=== PATIENT | female | born 1955 | race Caucasian/White ===

== ENCOUNTER → 2016-05-23 | Outpatient (CLI) | payer OTHER ==
[~2016-05-23] MED LIST: ACET-1138 PO; ALBUAER19 INH; ASPEC81 PO; CALC-51 PO; CHOL2000 PO; CLB200 PO; CLR10 PO; FLUT1INH INH; LISI-788 PO; MONT1TAB3 PO; OMEG10007 PO; ONDA8TAB6 PO; OXYSR10 PO; RXC5 PO; SNK PO; [UNRECOGNIZED DRUG - OTHER] PO
--- NOTE | 2016-05-23 17:00 | MAMMOGRAPHY REPORT ---
BILATERAL DIGITAL SCREENING MAMMOGRAM TOMOSYNTHESIS WITH CAD: 05/23/2016 TECHNIQUE: Breast tomosynthesis in addition to standard 2D mammography was performed. Current study was also evaluated with a Computer Aided Detection (CAD) system. COMPARISON: Prior outside mammograms dated 03/23/2015, 01/22/2014, 07/25/2012, 12/16/09 from [facility]. BREAST COMPOSITION: The tissue of both breasts is heterogeneously dense, which may obscure small ma sses. FINDINGS: No suspicious masses, calcifications, or areas of architectural distortion are noted in e ither breast. There has been no significant interval change compared to prior exams. Scattered bilat eral benign-appearing calcifications are not significantly changed. IMPRESSION: ACR BI-RADS CATEGORY 2: BENIGN There is no mammographic evidence of malignancy. A 1 year screening mammogram is recommended. The p atient will receive written notification of the results. Approximately 10% of breast cancers are not detected with mammography. A negative mammographic repor t should not delay biopsy if a clinically suggestive mass is present. Brynn Borges M.D. ah/:05/23/2016 15:55:35 Assembler Equipment: Jade PINEDA(Keely)(M), [facility] letter sent: Normal 1/2 BI-RADS Code: ACR BI-RADS Category 2: Benign
== END | disposition home or self-care (01) ==
LOC: C.MAMM 13:14
PROVIDERS: ATTEND Family Medicine
DX: Z12.31 Encounter for screening mammogram for malignant neoplasm of breast (principal)

== ENCOUNTER → 2017-02-18 | Outpatient (CLI) | payer OTHER ==
[~2017-02-18] MED LIST changes: -ONDA8TAB6 PO
--- NOTE | 2017-02-18 07:43 | DIAGNOSTIC IMAGING REPORT ---
ULTRASOUND RIGHT UPPER QUADRANT ABDOMEN CLINICAL HISTORY: Epigastric abdominal pain. COMPARISON STUDY: No priors. TECHNIQUE: Real-time, grayscale, and color flow sonography of the right upper quadrant of the abdomen was performed. Images are reviewed in the transverse and longitudinal planes. FINDINGS: Liver: The liver is enlarged, measuring over 20 cm in length. The liver demonstrates heterogeneously increased echotexture consistent with hepatic steatosis. Note that this degrades acoustic penetration of the liver. There is no intrahepatic biliary ductal dilatation. The main portal vein is patent. Gallbladder: The gallbladder is normal in appearance. No gallstones are identified. There is no gallbladder wall thickening or pericholecystic fluid. A sonographic Ritchie's sign is reportedly absent. The common bile duct measures up to 0.5 cm in diameter. Pancreas: Visualized portions of the pancreatic head and body are normal in appearance. Right kidney: Survey images of the right kidney demonstrate normal size and echotexture. There is no hydronephrosis. Ascites: None. IMPRESSION: 1. No acute sonographic abnormality is identified. No gallstones are seen. 2. Hepatomegaly and severe hepatic steatosis Electronically signed by: Scott Hamilton M.D. 02/18/2017 7:42 AM Dictated Date/Time: 02/18/2017 7:41 AM
[2017-02-18 10:12] LABS: ALT/SGPT 37 U/L (12-78); AST/SGOT 16 U/L (15-37); BLOOD UREA NITROGEN 18 mg/dl (7-18); BUN/CREATININE RATIO 23.3 (10-20); CALCIUM 9.6 mg/dl (8.5-10.1); CARBON DIOXIDE 27 mmol/L (21-32); CHLORIDE 102 mmol/L (98-107); CREATININE 0.77 mg/dl (0.60-1.20); GLUCOSE 151 mg/dl (70-99); POTASSIUM 4.2 mmol/L (3.5-5.1); SODIUM 138 mmol/L (136-145)
[2017-02-18 10:15] LABS: CHOLESTEROL 200 mg/dl (0-200); CHOLESTEROL/HDL RATIO 4.8; HDL CHOLESTEROL 42 mg/dl; LDL CHOLESTEROL CALCULATED 96 mg/dl; TRIGLYCERIDES 309 mg/dl (0-150); VERY LOW DENSITY LIPOPROT CALC 62 mg/dl
== END | disposition home or self-care (01) ==
LOC: C.ULTR 06:58
PROVIDERS: ATTEND Physician Assistant
DX: R10.11 Right upper quadrant pain (principal); R10.13 Epigastric pain; K76.0 Fatty (change of) liver, not elsewhere classified; I10 Essential (primary) hypertension; E78.5 Hyperlipidemia, unspecified

== ENCOUNTER → 2017-03-06 | Outpatient (CLI) | payer OTHER | END | disposition home or self-care (01) | LOC: C.LABMFLN 07:35 | PROVIDERS: ATTEND Family Medicine | DX: R73.09 Other abnormal glucose (principal) ==

== ENCOUNTER → 2017-03-25 | Outpatient (CLI) | payer OTHER ==
[~2017-03-25] MED LIST changes: +ACET325T96 PO; -ALBUAER19 INH; -ASPEC81 PO; -CALC-51 PO; +CALC500T64 PO; -CHOL2000 PO; +CHOLTAB11 PO; -CLB200 PO; +CYCL0.052 OP; +DICL-201 PO; +HYDR-5688 PO; +IRONCAP18 PO; +LISI-787 PO; -LISI-788 PO; -OXYSR10 PO; +PRLSR20 PO; -RXC5 PO; -SNK PO; +VNTHFA/IN INH; -[UNRECOGNIZED DRUG - OTHER] PO; +onglyza PO
[2017-03-25 12:59] LABS: BASO % 0.7 %; BASO ABS # 0.06 K/uL (0-0.2); COMPLETE YES; EOS % 2.2 %; HEMATOCRIT 40.6 % (37-47); IG% 0.4 %; LYMPH % 20.9 %; LYMPH ABS # 1.92 K/uL (1.2-3.4); MEAN CELL VOLUME 89.4 fL (80-100); MEAN CORPUSCULAR HEMOGLOBIN 30.6 pg (25-34); MEAN CORPUSCULAR HGB CONC 34.2 g/dl (32-36); MEAN PLATELET VOLUME 9.4 fL (7.4-10.4); NEUT % 66.8 %; PLATELET COUNT 353 K/uL (130-400); RED BLOOD COUNT 4.54 M/uL (4.2-5.4); WHITE BLOOD COUNT 9.18 K/uL (4.8-10.8)
[2017-03-25 13:41] LABS: ESTIMATED AVERAGE GLUCOSE 143 mg/dl; HA1C FLAG Normal (Normal)
== END | disposition home or self-care (01) ==
LOC: C.LABMFLN 08:08
PROVIDERS: ATTEND Surgery
DX: Z01.812 Encounter for preprocedural laboratory examination (principal); K82.8 Other specified diseases of gallbladder; E11.9 Type 2 diabetes mellitus without complications

== ENCOUNTER 2017-03-27 05:06 | Observation (INO) | payer OTHER ==
[2017-03-22 13:43] VITALS: BMI 41.0
[~2017-03-27] VITALS: Ht 165.1 cm; Wt 111.8 kg
[2017-03-27] VITALS (8 sets, daily range): BP systolic 130–155; BP diastolic 73–93; PULSE 91–106; TEMP 36.5–37.4; O2SAT 94–99; BMI 41.0
[~2017-03-27 05:06] MED LIST changes: -ACET325T96 PO; -CYCL0.052 OP; -DICL-201 PO; -HYDR-5688 PO
[2017-03-27] MEDS ORDERED: ACET325T96 PO (05:42)
[2017-03-27] MEDS ORDERED: LACTATED RINGER'S 1000ML 1,000 ML IV SCH ×2 (06:00→08:03)
[2017-03-27] MEDS ORDERED: CEFUROXIME IV 1,500 MG in DEXTROSE 5% 100ML IV SCH ×4 (06:00)
[2017-03-27] MEDS ORDERED: DICL-201 PO (06:13)
[2017-03-27] MEDS ORDERED: CYCL0.052 OP (06:13)
[2017-03-27] MEDS ORDERED: LIDOCAINE HCL 2% 2 ML VIAL (20MG/ML) ONE (06:19)
[2017-03-27] MEDS ORDERED: ONDANSETRON INJ 2 MG/ML 2 ML VIAL ONE (06:19)
[2017-03-27] MEDS ORDERED: PROPOFOL IV EMULSION 10 MG/ML 20 ML VIAL IV ONE (06:19)
[2017-03-27] MEDS ORDERED: DEXAMETHASONE SOD INJ 4 MG/ML VIAL ONE (06:19)
[2017-03-27] MEDS ORDERED: ROCURONIUM BROMIDE 10 MG/ML 5 ML VIAL IV ONE (06:19)
[2017-03-27] MEDS ORDERED: MIDAZOLAM HCL 1 MG/ML 2ML VIAL ONE (06:20)
[2017-03-27] MEDS ORDERED: FENTANYL CITRATE INJ 50 MCG/1 ML 2 ML VIAL ONE ×2 (06:20→07:49)
[2017-03-27] MEDS ORDERED: BUPIVACAINE 0.5 % 5 MG/1 ML MPF 30ML VIAL ONE (06:43)
[2017-03-27] MEDS ORDERED: CONRAY 60% 50 ML VIAL ONE (06:43)
--- NOTE | 2017-03-27 06:48 | History & Physical Bridge Note ---
H&P Re-Evaluation Bridge Note: I have examined the patient, reviewed the History & Physical and in the interval since the performance of the History & Physical I have noted the following changes of clinical significance: No changes noted
[2017-03-27] MEDS ORDERED: GLYCOPYRROLATE INJ 0.2 MG/ML VIAL ONE (07:24)
[2017-03-27] MEDS ORDERED: NEOSTIGMINE METHYLSULFATE 5 MG/5 ML SYR ONE (07:24)
--- NOTE | 2017-03-27 08:02 | [facility] Operative Report ---
Operative Report Operative Date Mar 27, 2017. Pre-Operative Diagnosis Chronic Cholecystitis Post-Operative Diagnosis Same as preoperative Procedure(s) Performed Laparoscopic Cholecystectomy Surgeon Dr. Rahul Morales [employer] Officer Surgeon(s) Radha Garvey PA-C Estimated Blood Loss 10ml Findings chronic adhesions Specimens A.) Gallbladder and contents Anesthesia gen Complication(s) None Disposition Recovery Room / PACU I attest to the content of the Intraoperative Record and any orders documented therein. Any exceptions are noted below.
[2017-03-27] MEDS ORDERED: HYDROCODONE/ACETAMOPHEN 5/325MG TAB PO PRN ×2 (08:15)
[2017-03-27] MEDS ORDERED: MoRPHine SULFATE 4 MG/ML 1 ML CARP\\VIAL IV PRN (08:15)
[2017-03-27] MEDS ORDERED: PROMETHAZINE HCL INJ 25 MG in SODIUM CHLORIDE 0.9% 50ML 50 ML IV PRN (08:15)
[2017-03-27] MEDS ORDERED: MoRPHine SULFATE 2 MG/ML CARP IV PRN (08:15)
[2017-03-27] MEDS ORDERED: ONDANSETRON INJ 2 MG/ML 2 ML VIAL IV PRN ×2 (08:15→08:30)
--- NOTE | 2017-03-27 08:24 | OPERATIVE REPORT ---
DATE OF OPERATION: 03/27/2017 NAME OF OPERATION: Laparoscopic cholecystectomy. STAFF SURGEON: Dr. Morales. FISCAL MANAGER: Radha Garvey PA-C. ANESTHESIA: General. PROCEDURE IN DETAIL: The patient was brought in the operating room and placed on the operating table in supine position. Her abdomen was prepped and draped in usual fashion. Using 0.5% plain Marcaine, all incisions were anesthetized, incision made just above the umbilicus, carrying dissection down to the fascia, placing a Veress needle, producing pneumoperitoneum. An 11 mm port was placed at this level, and then under visualization, three 5 mm ports were placed, 1 cephalad and 2 laterally. The gallbladder was grasped and retracted. There were chronic adhesions to the gallbladder indicating chronic cholecystitis, these were taken down. The gallbladder was aspirated of bile. Dissection was carried out at the bryan hepatis, identifying the cystic duct and cystic artery. These were clipped and transected. The gallbladder was dissected away from the liver bed. There was chronic thickened scar tissue indicating chronic cholecystitis. Gallbladder was then placed into an Endobag. After appropriate irrigation and hemostasis, the Endobag was removed through the umbilical site. All ports were then removed. The fascia at the umbilicus closed using interrupted 0 Vicryl suture, subcutaneous tissue reapproximated using 0 Vicryl suture and the skin reapproximated using 5-0 Prolene suture. During the operation, Ms. Garvey was instrumental the entire case in helping me enter the abdomen with retraction and also retraction of the gallbladder and also manipulation of the gallbladder after it was removed to place into the Endobag and assisting with closure of the abdomen. I attest to the content of the Intraoperative Record and any orders documented therein. Any exception s are noted below.
--- NOTE | 2017-03-27 08:25 | Discharge Instructions ---
Discharge Instructions Date of Service Mar 27, 2017. Admission Reason for Admission: Biliary Dyskinesia Discharge Discharge Diagnosis / Problem: chronic cholecystitis Discharge Goals Goal(s): Decrease discomfort, Improve function, Improve disease control Activity Recommendations Activity Limitations: as noted below Lifting Limitations: no more than 25 pounds Exercise/Sports Limitations: until after follow-up appointment May Resume Sexual Activity: when tolerated Shower/Bathe: tomorrow Driving or Machine Use: resume 3 days after discharge SPECIAL CARE INSTRUCTIONS: * Cover incisions and change daily for comfort/drainage * May use ibuprofen for pain as tolerated. * Expect some swelling and bruising. Call your doctor if: * Temperature above 101 degrees * Pain not relieved by pain medicine ordered * There is increased drainage or redness from any incision * You have any unanswered questions or concerns [phone]. FOLLOW UP VISIT: If not already scheduled, please call the office for a follow-up visit. for next week- some suture removal OFFICE PHONE NUMBER: Dr. Morales Office . Current Hospital Diet Patient's current hospital diet: Regular Diet Discharge Diet Recommended Diet: Regular Diet Procedures Procedures Performed: Laparoscopic Cholecystectomy Pending Studies Studies pending at discharge: no Laboratory Results Hemoglobin A1c Test 03/25/17 08:09 Range/Units Estimated Average Glucose 143 mg/dl Hemoglobin A1c 6.6 H 4.5-5.6 % Lipid Panel Test 02/18/17 07:32 Range/Units Triglycerides Level 309 H 0-150 mg/dl Cholesterol Level 200 0-200 mg/dl HDL Cholesterol 42 mg/dl Cholesterol/HDL Ratio 4.8 LDL Cholesterol, Calculated 96 mg/dl Medical Emergencies . Who to Call and When: Medical Emergencies: If at any time you feel your situation is an emergency, please call 911 immediately. . Non-Emergent Contact Non-Emergency issues call your: Primary Care Provider, Surgeon . "Provider Documentation" section prepared by Rahul Morales. . VTE Core Measure Inpt VTE Proph given/why not?: SCD's
[2017-03-27] MEDS ORDERED: HYDR-5688 PO (08:26)
[2017-03-27] MEDS ORDERED: ATROPINE SULFATE 0.1 MG/ML 5ML SYR IV PRN (08:30)
[2017-03-27] MEDS ORDERED: LABETALOL HCL IV 5 MG/ML 20ML IV PRN (08:30)
[2017-03-27] MEDS ORDERED: FENTANYL CITRATE INJ 50 MCG/1 ML 2 ML VIAL IV PRN (08:30)
[2017-03-27] MEDS ORDERED: EpHEDrine SULFATE INJ 50 MG/ML AMP IV PRN (08:30)
[2017-03-27] MEDS ORDERED: HYDROmorphone INJ 1 MG/ML SYR IV PRN (08:30)
[2017-03-27] MEDS ORDERED: MEPERIDINE HCL 25 MG/ML CARP IV PRN (08:30)
[2017-03-27] MEDS ORDERED: LISINOPRIL/HCTZ 20/12.5MG TAB PO SCH (09:00)
--- NOTE | 2017-03-27 09:31 | Anesthesiology Progress Note ---
Anesthesia Post Op Note Date & Time Mar 27, 2017 at 09:30 Vital Signs Pain Intensity: 0 Vital Signs Past 12 Hours Date Time Temp Pulse Resp B/P (MAP) Pulse Ox O2 Delivery O2 Flow Rate FiO2 03/27/17 08:55 36.4 91 16 141/87 100 Nasal Cannula 2 03/27/17 08:45 36.4 93 18 147/88 99 Nasal Cannula 2 03/27/17 08:35 94 18 148/82 99 Nasal Cannula 2 03/27/17 08:25 95 18 136/75 97 Nasal Cannula 2 03/27/17 08:15 90 18 148/79 98 Oxymask 10 03/27/17 08:08 36.3 88 18 145/75 98 Oxymask 10 03/27/17 05:43 37.1 91 18 143/83 (103) 96 Room Air Notes Mental Status: alert / awake / arousable, participated in evaluation Pt Amnestic to Procedure: Yes Nausea / Vomiting: adequately controlled Pain: adequately controlled Airway Patency, RR, SpO2: stable & adequate BP & HR: stable & adequate Hydration State: stable & adequate Anesthetic Complications: no major complications apparent
[2017-03-27] MEDS ORDERED: KETOROLAC TROMETHAMINE 30 MG/ML VIAL IV. ONE (09:45)
[2017-03-27] MEDS ORDERED: PROMETHAZINE HCL INJ 12.5 MG in SODIUM CHLORIDE 0.9% 50ML 50 ML IV PRN (09:45)
[2017-03-27] MEDS: MONTELUKAST SOD 10 MG TAB PO SCH (09:56)
[2017-03-27] MEDS ORDERED: IV FLUIDS COMPLETED PRN (10:15)
[2017-03-27] MEDS ORDERED: PNEUMOCOCCAL POLYSACCHARIDES 25 MCG/0.5 ML VIAL/SYR IM. ONE (10:15)
[2017-03-27] MEDS ORDERED: PNEUMOCOCCAL ADMINISTRATION CHARGE ONE (10:15)
[2017-03-27] MEDS ORDERED: HydrALAZINE HCL 20 MG/ML VIAL IV. PRN (12:15)
--- NOTE | 2017-03-27 12:17 | Medical Consult ---
Consultation Date of Consultation: Mar 27, 2017. Attending Physician: Rahul Morales M.D. Reason for Consultation: Medical management History of Present Illness Patient is a pleasant, with PMHx HTN, HLD, T2DM, asthma, OA, JEFFY, and GERD, s/p lap javier by Dr. Morales on 03/27. Patient is currently resting in bed. Pain is well controlled at this time. Has not eaten anything since the procedure. + nausea- just medicated with IV Zofran. No BM/flatus postop. Patient denies any fever, chills, sweats, lightheadedness, dizziness, vision changes, CP, palpitations, edema, SOB, wheezing, cough, vomiting, diarrhea, urinary symptoms , melena, numbness/tingling, weakness, muscle/joint pain, anxiety/depression, active bleeding, or new skin discoloration/changes. Of note, patient was recently diagnosed with T2DM. She was placed on Onglyza 5 mg daily due to upcoming procedure- after procedure, patient and PCP are to discuss going on Metformin. She would like to speak to nurse educator while in hospital due to new diagnosis and little knowledge. Past Medical/Surgical History Medical history: HTN HLD asthma OA JEFFY obesity GERD Surgical history: Meniscus repair L knee replacement hysterectomy tubal ligation lap javier Family History cardiac issues CVA HTN cancer Social History Smoking Status: Never Smoker Drug Use: none Marital Status: Housing Status: lives with family Allergies Coded Allergies: Cayenne Pepper (Verified Allergy, Unknown, FACE SWELL, NAUSEA AND VOMITING , 03/27/17) Statins (Unverified Adverse Reaction, Unknown, MUSCLE ACHES, 03/27/17) Home Medications Reported Home Medications Medications Dose Route/Sig Max Daily Dose Days Date Category Dose Instructions [place] 5MG/325MG (Acetaminophen/Hydrocodone Bitart) Tab 1-2 Tablet PO Q 6 HRS PRN 03/27/17 Rx PRN PAIN Voltaren (Diclofenac Sodium) 75 Mg Tabcr 75 Mg PO BID 03/27/17 Reported WITH FOOD Restasis (Cyclosporine (Ophth)) 0.05 % Emu 1 Drops OP BID 30 03/27/17 Reported Tylenol (Acetaminophen) 325 Mg Tab 650 Mg PO Q4 PRN 03/27/17 Reported Iron Formula (Iron W/ Folic Acid & Vit B12) 1 Cap Cap 1 Tab PO QAM 03/22/17 Reported [onglyza] 5 Mg 1 Tab PO QAM 03/22/17 Reported Prilosec (Omeprazole) 20 Mg Capcr 20 Mg PO QAM 03/22/17 Reported D-5000 (Cholecalciferol) 5,000 Unit Tab 1 Tab PO [id number] 30 03/22/17 Reported Terrance-Mag (Calcium W/ Magnesium) 1 Tab Tab 1 Tab PO 3XWK 03/22/17 Reported Zestoretic 20MG/12.5MG (HCTZ/Lisinopril) Tab 1 Tab PO QAM 03/22/17 Reported Claritin (Loratadine) 10 Mg Tab 20 Mg PO QPM PRN 04/13/16 Reported [place]-3 (Fish Oil) 1 Ea Cap 1,200 Mg PO 3XWK 04/13/16 Reported Thursdays Breo Ellipta (Fluticasone Furoate-Vilanterol) 1 Inh Inh 1 Puff INH QAM 04/13/16 Reported Singulair (Montelukast Sodium) 10 Mg Tab 10 Mg PO QAM 06/15/14 Reported Current Inpatient Medications Current Inpatient Medications Medications (Trade) Dose Ordered Sig/Nahomi Route Start Time Stop Time Status Last Admin Dose Admin HCTZ/Lisinopril (Prinzide 20-12.5MG Tab) 1 tab QAM PO 03/27/17 09:00 04/26/17 08:59 03/27/17 09:56 1 TAB Montelukast Sodium (Singulair Tab) 10 mg QAM PO 03/27/17 09:00 04/26/17 08:59 Lactated Ringer's 1,000 ml @ 75 mls/hr [id number] IV 03/27/17 08:03 03/27/17 13:00 03/27/17 09:58 75 MLS/HR Cefuroxime Sodium 1500 mg/Dextrose 115 ml @ 200 mls/hr Q8H IV 03/27/17 14:00 03/28/17 13:59 Acetaminophen/ Hydrocodone Bitart ([place] 5/325 Tab) 1 tab Q4 PRN PO 03/27/17 08:15 04/10/17 08:14 Acetaminophen/ Hydrocodone Bitart ([place] 5/325 Tab) 2 tab Q4 PRN PO 03/27/17 08:15 04/10/17 08:14 Morphine Sulfate (MoRPHine SULFATE INJ) 2 mg Q4H PRN IV 03/27/17 08:15 04/10/17 08:14 Morphine Sulfate (MoRPHine SULFATE INJ) 4 mg Q4H PRN IV 03/27/17 08:15 04/10/17 08:14 Promethazine HCl 25 mg/Sodium Chloride 51 ml @ 204 mls/hr Q6H PRN IV 03/27/17 08:15 04/26/17 08:14 Ondansetron HCl (Zofran Inj) 4 mg Q6H PRN IV 03/27/17 08:15 04/26/17 08:14 Fentanyl Citrate (Fentanyl Inj) 50 mcg Q5M PRN IV 03/27/17 08:30 03/27/17 13:30 Hydromorphone HCl (Dilaudid Inj) 0.5 mg Q5M PRN IV 03/27/17 08:30 03/27/17 13:30 Meperidine HCl (Demerol Inj) 25 mg Q5M PRN IV 03/27/17 08:30 03/27/17 13:30 Ondansetron HCl (Zofran Inj) 4 mg ONE PRN IV 03/27/17 08:30 03/27/17 13:30 Labetalol HCl (Normodyne IV) 5 mg Q5M PRN IV 03/27/17 08:30 03/27/17 13:30 Ephedrine Sulfate (EpHEDrine SULFATE INJ) 5 mg Q5M PRN IV 03/27/17 08:30 03/27/17 13:30 Atropine Sulfate (Atropine Sulfate 0.1MG/Ml Inj) 0.5 mg Q1M PRN IV 03/27/17 08:30 03/27/17 13:30 Promethazine HCl 12.5 mg/Sodium Chloride 50.5 ml @ 204 mls/hr Q6H PRN IV 03/27/17 09:45 04/26/17 09:44 Miscellaneous (Iv Fluids Completed) 1 ea PRN PRN N/A 03/27/17 10:15 03/27/18 10:14 Physical Exam Date Time Temp Pulse Resp B/P (MAP) Pulse Ox O2 Delivery O2 Flow Rate FiO2 03/27/17 11:19 100 18 144/83 (103) 96 Nasal Cannula 2.0 03/27/17 10:29 99 18 154/86 (108) 98 2.0 03/27/17 10:00 Nasal Cannula 2.0 03/27/17 09:43 97 18 143/86 (105) 99 Nasal Cannula 2.0 03/27/17 09:15 94 Nasal Cannula 2.0 03/27/17 09:15 36.5 98 18 155/93 (113) 94 Nasal Cannula 2.0 03/27/17 08:55 36.4 91 16 141/87 100 Nasal Cannula 2 03/27/17 08:45 36.4 93 18 147/88 99 Nasal Cannula 2 03/27/17 08:35 94 18 148/82 99 Nasal Cannula 2 03/27/17 08:25 95 18 136/75 97 Nasal Cannula 2 03/27/17 08:15 90 18 148/79 98 Oxymask 10 03/27/17 08:08 36.3 88 18 145/75 98 Oxymask 10 03/27/17 05:43 37.1 91 18 143/83 (103) 96 Room Air General Appearance: no apparent distress, + obese Head: normocephalic, atraumatic Eyes: normal inspection, PERRL ENT: hearing grossly normal Neck: supple Respiratory/Chest: lungs clear, no respiratory distress, no accessory muscle use Cardiovascular: regular rate, rhythm Abdomen/GI: normal bowel sounds, soft, + tenderness (appropriately tender ) Back: normal inspection Extremities/Musculoskelatal: no calf tenderness, no pedal edema Neurologic/Psych: alert, normal mood/affect, oriented x 3 Skin: normal color, warm/dry, no rash Laboratory Results Last 24 Hours Test 03/27/17 05:29 03/27/17 08:22 Bedside Glucose 149 mg/dl 173 mg/dl Assessment & Plan Patient is a pleasant, with PMHx HTN, HLD, T2DM, asthma, OA, JEFFY, and GERD, s/p lap javier by Dr. Morales on 03/27. s/p lap javier by Dr. Morales on 03/27: - Surgical management, pain management, and DVT prophylaxis as per primary team - Follow postop CBC and PRP - Encouraged incentive spirometer - Nausea- IV Zofran PRN T2DM- last HgbA1c 6.6%: - Continue Onglyza 5 mg daily - BSG ACHS and ISS - clinical document improvement educator consultation - Continue outpatient f/u w/ PCP HTN: - Hold Lisinopril/HCTZ pending postop PRP - Hydralazine 10 mg IV q6 hrs PRN sbp >180 or dbp >100 HLD- intolerant to statins: Continue Fish Oil JEFFY: Continue CPAP HS Asthma: Continue home inhalers GERD: Resume Prilosec 20 mg daily at discharge DVT prophylaxis: As per surgical team Code Status: LEVEL I, FULL Dispo: As per primary team
[2017-03-27 12:48] LABS: HEMATOCRIT 37.5 % (37-47); MEAN CELL VOLUME 89.3 fL (80-100); MEAN CORPUSCULAR HEMOGLOBIN 30.5 pg (25-34); MEAN CORPUSCULAR HGB CONC 34.1 g/dl (32-36); MEAN PLATELET VOLUME 8.8 fL (7.4-10.4); PLATELET COUNT 268 K/uL (130-400); WHITE BLOOD COUNT 12.28 K/uL (4.8-10.8)
[2017-03-27 13:13] LABS: BUN/CREATININE RATIO 29.4 (10-20); CALCIUM 8.9 mg/dl (8.5-10.1); CREATININE 0.97 mg/dl (0.60-1.20); POTASSIUM 4.4 mmol/L (3.5-5.1)
[2017-03-27] MEDS: CEFUROXIME IV 1,500 MG in DEXTROSE 5% 100ML 100 ML IV SCH ×2 (13:52→21:45)
[2017-03-27] MEDS: INSULIN ASPART 100 UNITS/ML 3 ML PEN SC SCH ×2 (18:05→20:50)
[2017-03-28 03:44] VITALS: BP 113/70; PULSE 88; TEMP 36.7; O2SAT 97
[2017-03-28] MEDS: CEFUROXIME IV 1,500 MG in DEXTROSE 5% 100ML 100 ML IV SCH (05:55)
[2017-03-28 07:05] VITALS: BP 109/68; PULSE 66; TEMP 36.8; O2SAT 96
[2017-03-28] MEDS: MONTELUKAST SOD 10 MG TAB PO SCH (07:28)
[2017-03-28 07:47] LABS: HEMATOCRIT 37.2 % (37-47); MEAN CORPUSCULAR HEMOGLOBIN 29.4 pg (25-34); MEAN CORPUSCULAR HGB CONC 33.1 g/dl (32-36); MEAN PLATELET VOLUME 8.7 fL (7.4-10.4); PLATELET COUNT 276 K/uL (130-400); RED BLOOD COUNT 4.18 M/uL (4.2-5.4); WHITE BLOOD COUNT 10.77 K/uL (4.8-10.8)
[2017-03-28] MEDS: INSULIN ASPART 100 UNITS/ML 3 ML PEN SC SCH (08:00)
[2017-03-28 08:20] LABS: BUN/CREATININE RATIO 21.1 (10-20); CALCIUM 9.2 mg/dl (8.5-10.1); CREATININE 0.81 mg/dl (0.60-1.20); POTASSIUM 3.9 mmol/L (3.5-5.1)
[2017-03-28 08:24] VITALS: BP 109/68; PULSE 66; TEMP 36.8; O2SAT 96
--- NOTE | 2017-03-28 09:06 | Anesthesiology Progress Note ---
Anesthesia Post Op Note Date & Time Mar 28, 2017 at 09:05 Vital Signs Pain Intensity: 2.0 Vital Signs Past 12 Hours Date Time Temp Pulse Resp B/P (MAP) Pulse Ox O2 Delivery O2 Flow Rate FiO2 03/28/17 08:24 36.8 66 18 96 Room Air 03/28/17 07:15 Room Air 03/28/17 07:05 36.8 66 18 109/68 (82) 96 Room Air 03/28/17 03:44 36.7 88 16 113/70 (84) 97 BiPAP 03/28/17 00:07 CPAP 03/27/17 23:15 37.4 95 16 130/73 (92) 95 Room Air Notes Mental Status: alert / awake / arousable, participated in evaluation Pt Amnestic to Procedure: Yes Nausea / Vomiting: adequately controlled Pain: adequately controlled Airway Patency, RR, SpO2: stable & adequate BP & HR: stable & adequate Hydration State: stable & adequate Anesthetic Complications: no major complications apparent
[2017-03-28 10:00] VITALS: Ht 165.1 cm; Wt 111.8 kg
--- NOTE | 2017-04-02 11:54 | DISCHARGE SUMMARY ---
PRINCIPAL DIAGNOSIS: Chronic cholecystitis. PROCEDURES: The patient underwent laparoscopic cholecystectomy. HISTORY OF PRESENT ILLNESS: The patient is a 61-year-old female who is being brought into the hospital for elective cholecystectomy. She was taken to the operating room on 03/27/2017 where she underwent laparoscopic cholecystectomy. She did have adhesions consistent with chronic inflammation and chronic cholecystitis. She did quite well and was felt stable for discharge home on 03/28/2017 to be followed in the surgical clinic within 1-2 weeks.
== END 2017-03-28 12:01 | disposition home or self-care (01) ==
LOC: C.ACU 05:06 → C.MSN 08:08 → ENRESERV 08:43
PROVIDERS: ADMIT Surgery; ATTEND Surgery
DX: K81.1 Chronic cholecystitis (principal); K82.8 Other specified diseases of gallbladder; R73.09 Other abnormal glucose; R63.5 Abnormal weight gain; I10 Essential (primary) hypertension; E88.81 Metabolic syndrome and other insulin resistance; G47.33 Obstructive sleep apnea (adult) (pediatric); E78.5 Hyperlipidemia, unspecified; E55.9 Vitamin D deficiency, unspecified

== ENCOUNTER 2017-05-17 05:40 | Inpatient (IN) | payer OTHER ==
[2017-04-23 12:12] VITALS: BMI 40.0
--- NOTE | 2017-04-23 12:50 | PAT Medication Instructions ---
Service Date Apr 23, 2017. Current Home Medication List Acetaminophen (Tylenol Arthritis Ext Rel), 1,300 MG PO PRN Ascorbic Acid (Vitamin C), 500 MG PO BID Calcium W/ Magnesium ([place]err[place]-Mag), 1 TAB PO 2XWEEEK Cholecalciferol (D-5000), 1 TAB PO [id number] Cyclosporine (Ophth) (Restasis), 1 DROPS OP BID Diclofenac (Voltaren), 75 MG PO BID Fish Oil ([place]-3), 1,200 MG PO 2XWEEK Fluticasone Furoate-Vilanterol (Breo Ellipta), 1 PUFF INH QAM Lisinopril/Hctz (Zestoretic 20MG/25MG), 2 TAB PO QAM Montelukast Sodium (Singulair), 10 MG PO QAM Omeprazole (Prilosec), 20 MG PO QAM [[place]], 20 MG PO QPM [Iron], 225 MG PO QAM [onglyza], 1 TAB PO QAM Medication Instructions For Your Scheduled Surgery - Hold the following medications 2 weeks prior to surgery: Fish Oil ([place]-3), 1,200 MG PO 2XWEEK - Hold the following medications the morning of surgery: Ascorbic Acid (Vitamin C), 500 MG PO BID [Iron], 225 MG PO QAM Lisinopril/Hctz (Zestoretic 20MG/25MG), 2 TAB PO QAM Diclofenac (Voltaren), 75 MG PO BID (otherwise okay to continue per surgeon) Calcium W/ Magnesium ([place]-Mag), 1 TAB PO 2XWEEEK Cholecalciferol (D-5000), 1 TAB PO [id number] [onglyza], 1 TAB PO QAM (5mg daily) - Take the following medications the morning of surgery with a sip of water OTHERWISE NOTHING TO EAT OR DRINK AFTER MIDNIGHT: Montelukast Sodium (Singulair), 10 MG PO QAM Omeprazole (Prilosec), 20 MG PO QAM Cyclosporine (Ophth) (Restasis), 1 DROPS OP BID Acetaminophen (Tylenol Arthritis Ext Rel), 1,300 MG PO PRN (may take if needed up to 4 hours prior to surgery) Fluticasone Furoate-Vilanterol (Breo Ellipta), 1 PUFF INH QAM Albuterol Inhaler (use if needed; BRING TO HOSPITAL) - Take the following medications as scheduled the night before surgery: Ascorbic Acid (Vitamin C), 500 MG PO BID Cyclosporine (Ophth) (Restasis), 1 DROPS OP BID Acetaminophen (Tylenol Arthritis Ext Rel), 1,300 MG PO PRN [Alavert], 20 MG PO QPM Albuterol Inhaler If you have any questions please call us at [phone] or [phone] or [phone]
[2017-04-23 13:25] LABS: BASO % 0.6 %; BASO ABS # 0.06 K/uL (0-0.2); EOS % 2.8 %; EOS ABS # 0.26 K/uL (0-0.5); HEMATOCRIT 40.4 % (37-47); HEMOGLOBIN 13.8 g/dL (12.0-16.0); IG# 0.04 K/uL (0.00-0.02); LYMPH % 21.5 %; LYMPH ABS # 2.01 K/uL (1.2-3.4); MEAN CELL VOLUME 88.6 fL (80-100); MEAN CORPUSCULAR HEMOGLOBIN 30.3 pg (25-34); MEAN CORPUSCULAR HGB CONC 34.2 g/dl (32-36); MEAN PLATELET VOLUME 9.1 fL (7.4-10.4); MONO % 5.7 %; MONO ABS # 0.53 K/uL (0.11-0.59); NEUT ABS # 6.46 K/uL (1.4-6.5); PLATELET COUNT 342 K/uL (130-400); RED CELL DISTRIBUTION WIDTH CV 13.8 % (11.5-14.5); RED CELL DISTRIBUTION WIDTH SD 45.2 fL (36.4-46.3); WHITE BLOOD COUNT 9.36 K/uL (4.8-10.8)
--- NOTE | 2017-04-23 13:35 | DIAGNOSTIC IMAGING REPORT ---
TWO VIEW CHEST CLINICAL HISTORY: Preoperative examination. FINDINGS: PA and lateral chest radiographs are compared to study dated 04/13/2016. The heart is enlarged and there is mild atherosclerotic calcification of the thoracic aorta. The pulmonary vasculature is noncongested. The lungs and pleural spaces are clear. There is no pneumothorax. The skeletal structures are osteopenic. Degenerative change is present throughout the spine. Cholecystectomy clips are seen in the upper abdomen. IMPRESSION: Cardiomegaly with no active disease in the chest. Electronically signed by: Scott Hamilton M.D. 04/23/2017 1:34 PM Dictated Date/Time: 04/23/2017 1:33 PM
[2017-04-23 15:01] LABS: CALCIUM 9.1 mg/dl (8.5-10.1); CREATININE 0.78 mg/dl (0.60-1.20)
[2017-05-17] VITALS (13 sets, daily range): BP systolic 113–160; BP diastolic 67–93; PULSE 86–105; TEMP 36.3–36.7; O2SAT 90–100; Ht 165.1 cm; Wt 110.5 kg
[~2017-05-17] VITALS: Ht 165.1 cm; Wt 110.5 kg
[~2017-05-17 05:40] MED LIST changes: -ACET-1138 PO; +ACET1TAB84 PO; +ASCO1CAP3 PO; -CLR10 PO; +CYCL0.052 OP; +DICL-201 PO; +IRON PO; -IRONCAP18 PO; -LISI-787 PO; +LISI-788 PO; +LORA-388 PO
[2017-05-17] MEDS ORDERED: CEFAZOLIN 2000MG IV PUSH 10 ML IV SCH (06:00)
[2017-05-17] MEDS ORDERED: LACTATED RINGER'S 1000ML 1,000 ML IV SCH (06:00)
[2017-05-17] MEDS ORDERED: LACTATED RINGERS IV SCH (06:00)
[2017-05-17] MEDS ORDERED: FENTANYL CITRATE INJ 50 MCG/1 ML 2 ML VIAL ONE ×4 (06:35→09:12)
[2017-05-17] MEDS ORDERED: MIDAZOLAM HCL 1 MG/ML 2ML VIAL ONE (06:35)
[2017-05-17] MEDS ORDERED: BACITRACIN 50000 UNIT VIAL ONE (06:51)
[2017-05-17] MEDS ORDERED: EpINEphrine INJ 1MG/ML AMP 1 MG/ML AMP ONE (06:52)
[2017-05-17] MEDS ORDERED: BUPIVACAINE 0.5 % 5 MG/1 ML MPF 30ML VIAL ONE (06:52)
--- NOTE | 2017-05-17 07:29 | History and Physical ---
History & Physical Date May 17, 2017. Chief Complaint Back and leg pain History of Present Illness The patient is a 61 year old female with complaints of Past Medical/Surgical History Medical Problems: (1) Chronic cholecystitis (2) Degenerative arthritis of left knee (3) Hypertension (4) Lumbar stenosis with neurogenic claudication Surgical Problems: (1) S/P lumbar spinal fusion Additional History Hepatic Disease: No Endocrine Disorder: No Kidney Disease: No Hypertension: Yes Heart Disease: No Bleeding Tendencies: No Infectious Diseases: No Allergies Coded Allergies: Statins (Unverified Adverse Reaction, Unknown, MUSCLE ACHES, 05/17/17) Home Medications Scheduled Acetaminophen (Tylenol Arthritis Ext Rel), 1,300 MG PO PRN Albuterol Hfa (Ventolin Hfa), 2-4 PUFFS INH Q6H Ascorbic Acid (Vitamin C), 500 MG PO BID Calcium W/ Magnesium ([place]-Mag), 1 TAB PO 2XWEEEK Cholecalciferol (D-5000), 1 TAB PO [id number] Cyclosporine (Ophth) (Restasis), 1 DROPS OP BID Diclofenac (Voltaren), 75 MG PO BID Fish Oil ([place]-3), 1,200 MG PO 2XWEEK Fluticasone Furoate-Vilanterol (Breo Ellipta), 1 PUFF INH QAM Lisinopril/Hctz (Zestoretic 20MG/25MG), 2 TAB PO QAM Loratadine (Alavert), 20 MG PO QPM Montelukast Sodium (Singulair), 10 MG PO QAM Omeprazole (Prilosec), 20 MG PO QAM [Iron], 225 MG PO QAM [onglyza], 1 TAB PO QAM Physical Examination Skin: warm/dry, no rash Eyes: normal inspection, EOMI, sclerae normal ENT: normal ENT inspection, pharynx normal Head: normocephalic, atraumatic Neck: supple, no adenopathy, trachea midline Respiratory/Chest: lungs clear, normal breath sounds, no respiratory distress Cardiovascular: regular rate, rhythm, no edema, no murmur Abdomen / GI: normal bowel sounds, non tender Back: normal inspection Extremities: normal inspection, normal range of motion Neurologic/Psych: no motor/sensory deficits, alert, normal reflexes, oriented x 3 Diagnosis Lumbar spinal stenosis Plan of Treatment Hardware removal L4 5 lumbar decompression fusion L3 4
[2017-05-17] MEDS ORDERED: HYDROmorphone INJ 2 MG/ML SYR/VIAL ONE ×3 (08:01→09:42)
[2017-05-17] MEDS ORDERED: FLUMAZENIL 0.1 MG/1 ML 10 ML VIAL IV PRN (08:30)
[2017-05-17] MEDS ORDERED: PHENYLEPHRINE 100MCG/ML 5ML SYR IV PRN (08:30)
[2017-05-17] MEDS ORDERED: EpHEDrine SULFATE INJ 50 MG/ML AMP IV PRN (08:30)
[2017-05-17] MEDS ORDERED: HYDROmorphone INJ 1 MG/ML SYR IV PRN (08:30)
[2017-05-17] MEDS ORDERED: NALOXONE HCL 0.4 MG/1 ML VIAL/CARP IV PRN ×3 (08:30→09:45)
[2017-05-17] MEDS ORDERED: ATROPINE SULFATE 0.1 MG/ML 5ML SYR IV PRN (08:30)
[2017-05-17] MEDS ORDERED: MoRPHine SULFATE 10 MG/ML CARP/VIAL IV PRN (08:30)
[2017-05-17] MEDS ORDERED: ONDANSETRON INJ 2 MG/ML 2 ML VIAL IV PRN ×2 (08:30→09:45)
[2017-05-17] MEDS ORDERED: MEPERIDINE HCL 25 MG/ML CARP IV PRN (08:30)
[2017-05-17] MEDS ORDERED: LABETALOL HCL IV 5 MG/ML 20ML IV PRN (08:30)
[2017-05-17] MEDS ORDERED: DEXAMETHASONE SOD INJ 4 MG/ML VIAL ONE (09:05)
[2017-05-17] MEDS ORDERED: PHENYLEPHRINE 100MCG/ML 5ML SYR ONE ×2 (09:05→09:42)
[2017-05-17] MEDS ORDERED: PROPOFOL IV EMULSION 10 MG/ML 20 ML VIAL IV ONE (09:05)
[2017-05-17] MEDS ORDERED: LIDOCAINE HCL 2% 2 ML VIAL (20MG/ML) ONE (09:05)
[2017-05-17] MEDS ORDERED: ONDANSETRON INJ 2 MG/ML 2 ML VIAL ONE ×2 (09:05→09:42)
[2017-05-17] MEDS ORDERED: FLOSEAL HEMOSTATIC MATRIX 10ML TOP ONE (09:25)
--- NOTE | 2017-05-17 09:34 | DIAGNOSTIC IMAGING REPORT ---
LUMBAR SPINE 2 OR 3 VIEW CLINICAL HISTORY: 61 years-old Female presenting with L4-L5 HARDWARE REMOVAL, L3-L4 DECOMPRESSION AND FUSION. TECHNIQUE: 2 fluoroscopic spot image(s) obtained as part of an intraoperative procedure. COMPARISON: 07/06/2014. FINDINGS/IMPRESSION: There has been interval extension of the posterior lumbar fusion with bilateral transpedicular screw and fixation of L3-L5 with interbody spacers at L3-4 and L4-5. Bunionectomy defects also noted at these levels. Grossly normal anatomic alignment. Please see surgical report for further details. Fluoroscopy dosage (mGy): 17.27. Fluoroscopy time: 14 seconds. Number of fluoroscopic spot images: 2. Electronically signed by: Roland Vega M.D. 05/17/2017 9:33 AM Dictated Date/Time: 05/17/2017 9:31 AM
[2017-05-17] MEDS ORDERED: SODIUM CHLORIDE 0.9% 1000ML 1,000 ML IV SCH (09:35)
--- NOTE | 2017-05-17 09:35 | [facility] Operative Report ---
Operative Report Operative Date May 17, 2017. Pre-Operative Diagnosis Lumbar Spinal Stenosis Post-Operative Diagnosis Lumbar Spinal Stenosis Procedure(s) Performed #1 removal of posterior instrumentation L4 5. #2 expiration of fusion L4 5. #3 lumbar decompression medial facetectomies foraminotomies L2 3 L3 4. #4 posterior spinal fusion L3 4. #5 placement posterior segmental instrumentation L3 4 L4 5. #6 interbody fusion L3 4. #7 placement peek cage 12 x 22 mm L3 4. #8 placement of locally harvested morcellized autograft and posterior gutters. #9 placement infuse collagen sponge by mask graft in the posterior lateral gutters and ostial amp bone graft in the interbody space. Surgeon Emergency Medicine Specialist Surgeon(s) ANABEL Elam Estimated Blood Loss 250ML Findings Severe lumbar spinal stenosis Specimens A. Removed Lumbar Hardware Description of Procedure Patient was met with preoperatively case discussed all questions addressed. After informed consent obtained patient was taken operative suite underwent intubation placed in a prone position the Erik table on top Cheng frame. All bony prominences were well-padded eyes inspected to ensure no external pressure placed upon them. This point the lumbar spine is prepped and draped in normal sterile fashion. Sharp dissection with the assistance of Bovie cautery was performed onto an exposing the lamina and transverse processes of L3 and instrumentation L4-L5 levels bilaterally. Then proceeded remove the hardware bilaterally explored the fusion mass noted to be intact. Then performed a complete laminectomy of L3 partial laminectomy of L2 addressing severe lateral recess and foraminal stenosis. After this complete pedicle screws are placed in L3 L4 L5 bilaterally with assistance of fluoroscopy the purposes sharon placed. Through a transforaminal approach on the left complete discectomy was performed and plate created to subcortical bleeding bone and a 12 x 22 mm peek cage filled with ostial amp bone graft tapped in position. The rods were then locked and final position bilaterally. The transverse processes of L3-L4 were burred to subcortical bleeding bone. Infuse calm sponge mask graft locally harvested morcellized autograft was placed in the posterior lateral gutters. 15 round CIERA drain inserted. Incision then closed with 1 Vicryl fascia 2-0 Vicryl subcutaneous tediously 4 Monocryl for final skin closure Steri-Strips sterile dressings placed. Patient we can take PACU stable condition. Please note Cristino dale was present at the entire procedure involved in patient positioning complex portions of the surgery and final skin closure. I attest to the content of the Intraoperative Record and any orders documented therein. Any exceptions are noted below.
[2017-05-17] MEDS ORDERED: GLYCOPYRROLATE INJ 0.2 MG/ML VIAL ONE (09:42)
[2017-05-17] MEDS ORDERED: KETOROLAC TROMETHAMINE 30 MG/ML VIAL ONE (09:42)
[2017-05-17] MEDS ORDERED: NEOSTIGMINE METHYLSULFATE 1 MG/ML 10ML VIAL ONE (09:42)
[2017-05-17] MEDS ORDERED: ESMOLOL HCL 10 MG/ML 10 ML VIAL ONE (09:42)
[2017-05-17] MEDS ORDERED: ALBUTEROL HFA 8 GM INHALER INH PRN (09:45)
[2017-05-17] MEDS ORDERED: DO NOT ADMINISTER FLU VACCINE PRN (09:45)
[2017-05-17] MEDS ORDERED: ACETAMINOPHEN IV 100 ML IV PRN (09:45)
[2017-05-17] MEDS ORDERED: SOD PHOSPHATE/SOD BIPHOSPHATE ENEMA 132 ML BTL PR PRN (09:45)
[2017-05-17] MEDS ORDERED: LORAZEPAM INJ 0.5 MG in SYRINGE 0 ML IV PRN (09:45)
[2017-05-17] MEDS ORDERED: FAMOTIDINE 20 MG TAB PO PRN (09:45)
[2017-05-17] MEDS ORDERED: ALUMINUM/MAGNESIUM SUSP 30 ML UDC PO PRN (09:45)
[2017-05-17] MEDS ORDERED: hydrOXYzine HCL 25 MG TAB PO PRN (09:45)
[2017-05-17] MEDS ORDERED: LORAZEPAM 0.5 MG TAB PO PRN (09:45)
[2017-05-17] MEDS ORDERED: DO NOT ADMINISTER PNEUMOCOCCAL VACCINE PRN (09:45)
[2017-05-17] MEDS ORDERED: MAGNESIUM HYDROXIDE SUSP 30 ML UDC PO PRN (09:45)
[2017-05-17] MEDS ORDERED: CEFAZOLIN IV 2,000 MG in DEXTROSE 5% 50ML 50 ML IV SCH (09:45)
[2017-05-17] MEDS ORDERED: PROMETHAZINE HCL INJ 12.5 MG in SODIUM CHLORIDE 0.9% 50ML 50 ML IV PRN (09:45)
[2017-05-17] MEDS ORDERED: BISACODYL 10 MG SUPP PR PRN (09:45)
[2017-05-17] MEDS ORDERED: HYDROmorphone HCL 0.5MG/ML 50 ML CASSETTE ONE (10:00)
--- NOTE | 2017-05-17 10:42 | Anesthesiology Progress Note ---
Anesthesia Post Op Note Date & Time May 17, 2017 at 10:42 Vital Signs Pain Intensity: 4 Vital Signs Past 12 Hours Date Time Temp Pulse Resp B/P (MAP) Pulse Ox O2 Delivery O2 Flow Rate FiO2 05/17/17 10:35 36.3 85 13 160/92 100 Nasal Cannula 4 05/17/17 10:25 88 12 164/76 99 Oxymask 10 05/17/17 10:15 90 13 149/73 95 Oxymask 10 05/17/17 10:05 91 13 177/87 96 Oxymask 15 05/17/17 09:55 36.5 89 16 175/80 99 Oxymask 15 05/17/17 06:03 36.4 89 18 147/81 95 Room Air Notes Mental Status: alert / awake / arousable, participated in evaluation Pt Amnestic to Procedure: Yes Nausea / Vomiting: adequately controlled Pain: adequately controlled Airway Patency, RR, SpO2: stable & adequate BP & HR: stable & adequate Hydration State: stable & adequate Anesthetic Complications: no major complications apparent
[2017-05-17] MEDS: HYDROmorphone HCL 0.5MG/ML 50 ML CASSETTE IV PRN ×2 (15:12→19:14)
[2017-05-17] MEDS: METOCLOPRAMIDE HCL INJ 5 MG/ML 2 ML VIAL IV PRN (15:17)
[2017-05-17] MEDS: SODIUM CHLORIDE 0.9% 1000ML 1,000 ML IV SCH ×2 (15:17→22:55)
[2017-05-17] MEDS: CEFAZOLIN IV 2,000 MG in SYRINGE 0 ML IV SCH (16:27)
[2017-05-17] MEDS: ACETAMINOPHEN 500 MG TAB PO PRN (16:28)
[2017-05-17] MEDS: DOCUSATE SODIUM/SENNA 50/8.6MG TAB PO SCH (21:25)
[2017-05-17] MEDS: LORATADINE 10 MG TAB PO SCH (21:25)
[2017-05-18] MEDS: CEFAZOLIN IV 2,000 MG in SYRINGE 0 ML IV SCH (00:29)
[2017-05-18 03:25] VITALS: BP 134/73; PULSE 95; TEMP 36.8; O2SAT 97
[2017-05-18] MEDS: SODIUM CHLORIDE 0.9% 1000ML 1,000 ML IV SCH (05:00)
[2017-05-18 06:00] LABS: HEMATOCRIT 31.7 % (37-47); HEMOGLOBIN 10.6 g/dL (12.0-16.0); IG# 0.07 K/uL (0.00-0.02); LYMPH % 7.8 %; MEAN CELL VOLUME 89.5 fL (80-100); MEAN CORPUSCULAR HEMOGLOBIN 29.9 pg (25-34); MEAN CORPUSCULAR HGB CONC 33.4 g/dl (32-36); MEAN PLATELET VOLUME 8.8 fL (7.4-10.4); MONO % 6.1 %; MONO ABS # 0.94 K/uL (0.11-0.59); NEUT % 85.6 %; NEUT ABS # 13.14 K/uL (1.4-6.5); PLATELET COUNT 279 K/uL (130-400); RED CELL DISTRIBUTION WIDTH SD 46.2 fL (36.4-46.3); WHITE BLOOD COUNT 15.35 K/uL (4.8-10.8)
[2017-05-18] MEDS ORDERED: HYDROmorphone INJ 0.5 MG/0.5 ML SYR IV PRN (06:00)
[2017-05-18] MEDS ORDERED: DC PCA ONE (06:00)
[2017-05-18] MEDS ORDERED: NURSING VERBAL MED ORDER ONE (06:00)
[2017-05-18 06:31] LABS: CALCIUM 8.2 mg/dl (8.5-10.1); CREATININE 0.69 mg/dl (0.60-1.20); POTASSIUM 4.1 mmol/L (3.5-5.1)
[2017-05-18 07:54] VITALS: BP 148/77; PULSE 85; TEMP 36.7; O2SAT 95
[2017-05-18] MEDS: MONTELUKAST SOD 10 MG TAB PO SCH (08:54)
[2017-05-18] MEDS: PANTOprazole SOD 40 MG TAB PO SCH (08:54)
[2017-05-18] MEDS: LISINOPRIL/HCTZ 20/25MG TAB PO SCH (08:54)
[2017-05-18 11:48] VITALS: BP 153/90; PULSE 88; TEMP 36.4; O2SAT 100
--- NOTE | 2017-05-18 12:41 | PROGRESS NOTE ---
DATE: 05/18/2017 SUBJECTIVE: Ms. Rao is here postoperative day #1 status post removal of hardware, decompression and re-instrumentation. She is doing well this morning. She has some soreness in her back but she has been up and walking on her own. She feels that she is progressing nicely. She is tolerating p.o. without difficulties. She is not having any leg pain. PHYSICAL EXAMINATION: VITAL SIGNS: She is afebrile. Vital signs are stable. Hematocrit is 31.7. CIERA drains placed 70 mL out in the last shift. ABDOMEN: Soft, nontender. EXTREMITIES: Calves are supple and nontender. Strength and sensation both intact. ASSESSMENT: Patient is stable postoperative day #1. PLAN: We will continue with mobilization efforts, continue with PT, OT and pain control measures. If she does very well today, we may let her go home as early as tomorrow.
[2017-05-18] MEDS: METOCLOPRAMIDE HCL INJ 5 MG/ML 2 ML VIAL IV PRN (13:28)
[2017-05-18] MEDS: OXYCODONE HCL IR 5 MG TAB (IMMEDIATE RELEASE) PO PRN ×3 (13:31→20:54)
[2017-05-18 15:35] VITALS: BP 114/70; PULSE 98; TEMP 36.6; O2SAT 98
[2017-05-18] MEDS: LORATADINE 10 MG TAB PO SCH (20:52)
[2017-05-18] MEDS: DOCUSATE SODIUM/SENNA 50/8.6MG TAB PO SCH (20:52)
[2017-05-18 22:50] VITALS: BP 130/73; PULSE 93; TEMP 36.8; O2SAT 97
[2017-05-19] MEDS: OXYCODONE HCL IR 5 MG TAB (IMMEDIATE RELEASE) PO PRN ×4 (01:26→22:21)
[2017-05-19] MEDS: POLYETHYLENE (MIRALAX) 17 GM PACK PO SCH ×4 (06:01→23:50)
[2017-05-19 06:49] VITALS: BP 113/74; PULSE 79; TEMP 36.9; O2SAT 99
[2017-05-19 08:15] VITALS: O2SAT 99
[2017-05-19] MEDS: MONTELUKAST SOD 10 MG TAB PO SCH (09:22)
[2017-05-19] MEDS: LISINOPRIL/HCTZ 20/25MG TAB PO SCH (09:22)
[2017-05-19] MEDS: PANTOprazole SOD 40 MG TAB PO SCH (09:22)
[2017-05-19 09:31] VITALS: BP 113/74; PULSE 79; O2SAT 99
[2017-05-19 15:32] VITALS: BP 113/71; PULSE 89; TEMP 36.6; O2SAT 94
[2017-05-19] MEDS: ACETAMINOPHEN 500 MG TAB PO PRN (15:34)
[2017-05-19] MEDS: LORATADINE 10 MG TAB PO SCH (21:06)
[2017-05-19] MEDS: DOCUSATE SODIUM/SENNA 50/8.6MG TAB PO SCH (21:06)
[2017-05-19] MEDS: METOCLOPRAMIDE HCL INJ 5 MG/ML 2 ML VIAL IV PRN (22:21)
[2017-05-19 22:45] VITALS: BP 128/68; PULSE 89; TEMP 37.1; O2SAT 97
[2017-05-19 23:40] VITALS: O2SAT 97
[2017-05-20] VITALS (7 sets, daily range): BP systolic 100–125; BP diastolic 63–93; PULSE 60–92; TEMP 36.4–37.3; O2SAT 95–99
[2017-05-20] MEDS: POLYETHYLENE (MIRALAX) 17 GM PACK PO SCH ×2 (06:32→12:41)
[2017-05-20] MEDS: LISINOPRIL/HCTZ 20/25MG TAB PO SCH (07:24)
[2017-05-20] MEDS: PANTOprazole SOD 40 MG TAB PO SCH (07:24)
[2017-05-20] MEDS: MONTELUKAST SOD 10 MG TAB PO SCH (07:24)
[2017-05-20] MEDS: ACETAMINOPHEN 500 MG TAB PO PRN (07:27)
--- NOTE | 2017-05-20 07:40 | Anesthesiology Progress Note ---
Anesthesia Post Op Note Date & Time May 20, 2017 at 07:39 Vital Signs Vital Signs Past 12 Hours Date Time Temp Pulse Resp B/P (MAP) Pulse Ox O2 Delivery O2 Flow Rate FiO2 05/20/17 06:45 36.6 92 16 125/82 (96) 95 Room Air 05/19/17 23:40 97 Room Air 05/19/17 22:45 37.1 89 16 128/68 (88) 97 Room Air Notes Mental Status: alert / awake / arousable, participated in evaluation Pt Amnestic to Procedure: Yes Nausea / Vomiting: adequately controlled Pain: adequately controlled Airway Patency, RR, SpO2: stable & adequate BP & HR: stable & adequate Hydration State: stable & adequate Anesthetic Complications: no major complications apparent
[2017-05-20] MEDS ORDERED: RXC5 PO (09:42)
--- NOTE | 2017-05-20 09:42 | Discharge Instructions ---
Discharge Instructions Date of Service May 20, 2017. Admission Reason for Admission: Lumbar Spinal Stenosis Discharge Discharge Diagnosis / Problem: lumbar stenosis Discharge Goals Goal(s): Improve function Activity Recommendations Activity Limitations: per Instructions/Follow-up section . Instructions / Follow-Up Instructions / Follow-Up ACTIVITY RECOMMENDATIONS: SELF CARE INSTRUCTIONS AFTER THORACIC/LUMBAR FUSIONS 1. You may walk to your tolerance. It is good exercise for your legs and back. Expect some back and intermittent leg aches and pains. 2. You may perform "counter-top" level activities (make a sandwich, wilfred with a project, etc.). 3. No bending or lifting of more than 10 pounds or back twisting of any nature (roll like a log when turning in bed). 4. You may ride in a car for 20-30 minutes at a time. No driving until after your first visit with your doctor. 5. Frequent changes of position and restricting sitting to 30 minutes at a time will help limit the amount of back spasms and stiffness you may experience. 6. You may discontinue the use of ambulatory aids (cane, crutches, etc.) once your strength and confidence allow. 7. 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 Do not take a tub bath, sit in a hot tub or go into a swimming pool until after your first recheck in the office. SPECIAL CARE INSTRUCTIONS: VERY IMPORTANT TO READ AND REVIEW A. Your surgical incision has been closed with a cosmetic suture under the skin that will dissolve in about 6 weeks. In 14 days, you can use a pair of clean scissors and cut the suture that is left outside of the skin at the ends of your incision. 1. The small skin tapes can be removed 7 days after surgery if they have not fallen off by that point. 2. You may keep the wound open to air as much as possible to promote healing after post-op day number 5 unless told otherwise by your doctor. 3. If you think the wound looks like it is becoming infected (redness or worsening drainage) and/or you are experiencing fever, chill or worsening back pain and muscle spasms, contact the office so that we may evaluate you as soon as possible. B. Complications are uncommon, but please contact us if you have any signs or symptoms of: 1. wound infection (fever higher than 102.5 degrees F, redness, separation of wound, drainage, or increasing pain from the incision) 2. blood clots in legs (pain, swelling, redness and warmth in legs) 3. urinary tract infection (fever higher than 102.5 degrees F, burning upon urination or increased frequency of urination) 4. nerve problems (inability to walk on your toes or heels, numbness, loss of bowel or bladder control) 5. any other symptoms that concern you C. Please call the office at if you have any concerns or questions about your operation or recovery. D. No smoking! Smoking drastically decreases the chance of a solid fusion. E. Do not take any anti-inflammatory medications (Indocin, Advil, Motrin, Aspirin, Naprosyn, etc.) as these may inhibit the chance of a solid fusion. Tylenol is okay to take for pain. MANAGING PAIN AFTER SPINAL SURGERY 1. Narcotic medication is intended for short-term use and will be provided for surgical pain. Surgical pain usually lasts for a period of 4-6 weeks. Narcotic medication includes Percocet, Vicodin, Darvocet, Tylenol #3 or Lortab. 2. Longer-term pain is more appropriately treated with non-narcotic medication such as Tylenol ES. 3. Muscle spasm is not appropriately treated with narcotics. Muscle relaxers such as Soma, Flexeril or Skelaxin can be used along with Tylenol ES. 4. Remember that we all live with some "aches and pains". This is not unusual or uncommon after an injury or as we get older. a. Back pain is expected and may include muscle spasms for 4 to 6 weeks after surgery. The pain should gradually improve. If the pain worsens for no apparent reason, please contact the office. b. Intermittent leg pain may also be experienced and should not be concerned about unless it worsens for no apparent reason. If so, please contact the office. 5. We will provide appropriate medication within the normal guidelines of their prescribed use. We will also be very cautious and aware of potential abuse and extended duration of patients' medication needs. a. Pain medications are for your comfort and to assist with sleep and rest so that the tissue can heal. They are not provided in order to return to normal activity and should not be used through the day. To do so or worsening pain at night can result from ongoing tissue damage and development of tolerance to the prescribed medicine. 6. Please allow 2-3 days to process refills. Prescriptions will not be mailed but must be picked up at the office. FOLLOW UP VISIT: Keep your scheduled follow-up appointment. Any questions, please call the office at . Current Hospital Diet Patient's current hospital diet: Diabetes Type 2 Diet Discharge Diet Recommended Diet: Regular Diet Procedures Procedures Performed: #1 removal of posterior instrumentation L4 5. #2 expiration of fusion L4 5. #3 lumbar decompression medial facetectomies foraminotomies L2 3 L3 4. #4 posterior spinal fusion L3 4. #5 placement posterior segmental instrumentation L3 4 L4 5. #6 interbody fusion L3 4. #7 placement peek cage 12 x 22 mm L3 4. #8 placement of locally harvested morcellized autograft and posterior gutters. #9 placement infuse collagen sponge by mask graft in the posterior lateral gutters and ostial amp bone graft in the interbody space. Pending Studies Studies pending at discharge: no Laboratory Results Hemoglobin A1c Test 03/25/17 08:09 Range/Units Estimated Average Glucose 143 mg/dl Hemoglobin A1c 6.6 H 4.5-5.6 % Lipid Panel Test 02/18/17 07:32 Range/Units Triglycerides Level 309 H 0-150 mg/dl Cholesterol Level 200 0-200 mg/dl HDL Cholesterol 42 mg/dl Cholesterol/HDL Ratio 4.8 LDL Cholesterol, Calculated 96 mg/dl Medical Emergencies . Who to Call and When: Medical Emergencies: If at any time you feel your situation is an emergency, please call 911 immediately. . Non-Emergent Contact Non-Emergency issues call your: Primary Care Provider . "Provider Documentation" section prepared by Juarez Shannon. . VTE Core Measure Inpt VTE Proph given/why not?: Kaylie Fuentes, SCD's
--- NOTE | 2017-05-20 10:24 | Discharge Summary ---
Orthopedic Discharge Summary Admission Date/Reason May 17, 2017 at 07:30 Lumbar Spinal Stenosis. Discharge Date/Disposition May 20, 2017 Home Diagnosis Principal Diagnosis: Lumbar spinal stenosis Admission Physical Exam As per Admitting History & Physical. Hospital Course Patient underwent lumbar decompression fusion tolerated as well as taken to the orthopedic floor postop we. Postop day 1 she was up and amatory progressed nicely through postoperative day #2. Socially postoperative day #3 she was discharged home. Discharge orders and instructions can be found on the chart for further review. Discharge Instructions Please refer to the electronic Patient Visit Report (Discharge Instructions) for additional information.
== END 2017-05-20 13:22 | disposition home or self-care (01) | DRG 455 ==
LOC: C.ACU 05:40 → C.3E 07:30 → ENRESERV 10:35
PROVIDERS: ADMIT Orthopaedic Surgery Orthopaedic Surgery of the Spine; ATTEND Orthopaedic Surgery Orthopaedic Surgery of the Spine
PROC: 0SG00AJ Fusion of Lumbar Vertebral Joint with Interbody Fusion Device, Posterior Approach, Anterior Column, Open Approach (ICD-10-PCS; principal; 2017-05-17 07:45)
PROC: 0SP004Z Removal of Internal Fixation Device from Lumbar Vertebral Joint, Open Approach (ICD-10-PCS; principal; 2017-05-17 07:45)
PROC: 0SG0071 Fusion of Lumbar Vertebral Joint with Autologous Tissue Substitute, Posterior Approach, Posterior Column, Open Approach (ICD-10-PCS; principal; 2017-05-17 07:45)
PROC: 0ST20ZZ Resection of Lumbar Vertebral Disc, Open Approach (ICD-10-PCS; principal; 2017-05-17 07:45)
PROC: 0SG00Z1 (ICD-10-PCS; principal; 2017-05-17 07:45)
DX: M48.061 Spinal stenosis, lumbar region without neurogenic claudication (principal); I10 Essential (primary) hypertension; E78.5 Hyperlipidemia, unspecified; G47.33 Obstructive sleep apnea (adult) (pediatric); Z79.899 Other long term (current) drug therapy; Z98.1 Arthrodesis status

== ENCOUNTER → 2017-06-25 | Outpatient (CLI) | payer OTHER ==
[~2017-06-25] MED LIST changes: -DICL-201 PO; +RXC5 PO
[2017-06-25 12:42] LABS: BASO % 0.6 %; BASO ABS # 0.05 K/uL (0-0.2); EOS % 1.3 %; EOS ABS # 0.12 K/uL (0-0.5); HEMATOCRIT 40.2 % (37-47); HEMOGLOBIN 13.3 g/dL (12.0-16.0); IG# 0.07 K/uL (0.00-0.02); LYMPH % 21.3 %; MEAN CELL VOLUME 88.4 fL (80-100); MEAN CORPUSCULAR HEMOGLOBIN 29.2 pg (25-34); MEAN CORPUSCULAR HGB CONC 33.1 g/dl (32-36); MONO % 7.1 %; MONO ABS # 0.63 K/uL (0.11-0.59); NEUT % 68.9 %; NEUT ABS # 6.13 K/uL (1.4-6.5); PLATELET COUNT 331 K/uL (130-400); RED CELL DISTRIBUTION WIDTH CV 14.9 % (11.5-14.5)
[2017-06-25 13:00] LABS: HEMOGLOBIN A1C 5.8 % (4.5-5.6)
[2017-06-25 13:40] LABS: ALBUMIN 3.8 gm/dl (3.4-5.0); ALT/SGPT 23 U/L (12-78); BLOOD UREA NITROGEN 15 mg/dl (7-18); CALCIUM 9.6 mg/dl (8.5-10.1); CARBON DIOXIDE 27 mmol/L (21-32); CHOLESTEROL 182 mg/dl (0-200); CREATININE 0.76 mg/dl (0.60-1.20); GLUCOSE 120 mg/dl (70-99); SODIUM 136 mmol/L (136-145)
[2017-06-25 13:43] LABS: ALKALINE PHOSPHATASE 122 U/L (45-117); AST/SGOT 12 U/L (15-37); LDL CHOLESTEROL CALCULATED 96 mg/dl; TOTAL PROTEIN 7.5 gm/dl (6.4-8.2)
== END | disposition home or self-care (01) ==
LOC: C.LABMFLN 09:58
PROVIDERS: ATTEND Family Medicine
DX: I10 Essential (primary) hypertension (principal); E78.5 Hyperlipidemia, unspecified; E11.9 Type 2 diabetes mellitus without complications; M48.061 Spinal stenosis, lumbar region without neurogenic claudication; E55.9 Vitamin D deficiency, unspecified

== ENCOUNTER → 2017-07-09 | Outpatient (CLI) | payer OTHER ==
--- NOTE | 2017-07-10 15:56 | MAMMOGRAPHY REPORT ---
BILATERAL DIGITAL SCREENING MAMMOGRAM TOMOSYNTHESIS WITH CAD: 07/09/2017 CLINICAL HISTORY: Routine screening. Patient has no complaints. TECHNIQUE: Breast tomosynthesis in addition to standard 2D mammography was performed. Current study was also evaluated with a Computer Aided Detection (CAD) system. COMPARISON: Comparison is made to exams dated: 05/23/2016 mammogram - [facility], 1 05/23/2014 mammogram, 01/22/2014 mammogram, 07/25/2012 mammogram, 12/16/2009 mammogram, and [facility]. BREAST COMPOSITION: The tissue of both breasts is heterogeneously dense, which may obscure small mas ses. FINDINGS: The parenchymal pattern is unchanged. There are diffuse bilateral benign-appearing microc alcifications. No developing mass, architectural distortion or cluster of suspicious microcalcificat ions is seen in either breast. IMPRESSION: ACR BI-RADS CATEGORY 2: BENIGN There is no mammographic evidence of malignancy. A 1 year screening mammogram is recommended. The pa tient will receive written notification of the results. Approximately 10% of breast cancers are not detected with mammography. A negative mammographic report should not delay biopsy if a clinically suggestive mass is present. Kelsey High M.D. ay/:07/09/2017 16:40:41 Occupational Health Nurse Manager: Keely Vásquez M, [facility] letter sent: Normal 1/2 BI-RADS Code: ACR BI-RADS Category 2: Benign
== END | disposition home or self-care (01) ==
LOC: C.MAMM 10:35
PROVIDERS: ATTEND Family Medicine
DX: Z12.31 Encounter for screening mammogram for malignant neoplasm of breast (principal)

== ENCOUNTER → 2017-12-25 | Outpatient (CLI) | payer OTHER ==
[2017-12-25 12:59] LABS: ALBUMIN 3.8 gm/dl (3.4-5.0); ALKALINE PHOSPHATASE 117 U/L (45-117); ALT/SGPT 28 U/L (12-78); AST/SGOT 16 U/L (15-37); BLOOD UREA NITROGEN 20 mg/dl (7-18); CALCIUM 8.9 mg/dl (8.5-10.1); CARBON DIOXIDE 25 mmol/L (21-32); CHOLESTEROL 179 mg/dl (0-200); CREATININE 0.79 mg/dl (0.60-1.20); GLUCOSE 121 mg/dl (70-99); LDL CHOLESTEROL CALCULATED 88 mg/dl; POTASSIUM 3.8 mmol/L (3.5-5.1); SODIUM 136 mmol/L (136-145); TOTAL PROTEIN 7.3 gm/dl (6.4-8.2)
== END | disposition home or self-care (01) ==
LOC: C.LABMFLN 08:03
PROVIDERS: ATTEND Family Medicine
DX: E78.5 Hyperlipidemia, unspecified (principal); E55.9 Vitamin D deficiency, unspecified; E11.9 Type 2 diabetes mellitus without complications